=== PATIENT | female | born 1955 | race African-American/Black ===

== ENCOUNTER 2019-07-25 11:47 | Emergency (ER) | payer MEDICAID ==
[~2019-07-25] VITALS: Ht 162.6 cm; Wt 68.0 kg
[~2019-07-25 11:47] MED LIST: ACET-2178 PO; AMLO5TAB4 PO; ASPI-1393 PO; BENA20TA10 PO; CALCIUM CARBONATE PO; DIPH-909 PO; DOCU-150 PO; GABA-529 PO; GABA-531 PO; HYDR25TA PO; IBUP-2029 PO; INDO-13 PO; MELO-106 PO; NAPR-681 PO; RANI150T7 PO
[2019-07-25] MEDS ORDERED: KETOROLAC 60MG/2ML VIAL IM ONE (12:45)
[2019-07-25] MEDS ORDERED: KETOROLAC 15MG/ML VIAL IV ONE (13:00)
[2019-07-25] MEDS ORDERED: DEXAMETHASONE 10 MG/ML VIAL IV ONE (13:00)
[2019-07-25] MEDS ORDERED: AMPICILLIN SOD/SULBACTAM NA 1.5 G in SODIUM CHLORIDE 0.9% 50 ML IV SCH (13:00)
[2019-07-25 13:24] VITALS: BP 148/92
[2019-07-25 13:28] LABS: HEMATOCRIT. 37.4 % (36.0-48.0); HEMOGLOBIN. 12.9 g/dL (12.0-16.0); MEAN CORPUSCULAR HEMOGLOBIN 32.4 pg (28.0-32.0); MEAN PLATELET VOLUME 8.1 fl (7.4-10.4); PLATELET 220 x1000/uL (130-400); RED BLOOD CELL COUNT 3.98 mill/uL (4.2-5.4); RED CELL DISTRIBUTION WIDTH 12.7 % (11.6-14.6)
[2019-07-25 13:34] LABS: CHLORIDE 109 mEq/L (98-107)
[2019-07-25 13:57] LABS: PLATELET ESTIMATE NORMAL
[2019-07-25] MEDS ORDERED: IOHEXOL-300 100 ML BOTTLE ONE (14:55)
== END 2019-07-25 16:10 | disposition home or self-care (01) ==
LOC: ER 11:47
DX: J36 Peritonsillar abscess (principal); I10 Essential (primary) hypertension; E78.00 Pure hypercholesterolemia, unspecified; M19.90 Unspecified osteoarthritis, unspecified site; Z79.82 Long term (current) use of aspirin; Z79.899 Other long term (current) drug therapy
CPT/HCPCS: 36415; 70491; 80048; 85025; 96365; 96372; 96375; 99284; J0295; J1100; J1885; Q9967

== ENCOUNTER 2019-07-27 13:03 | Emergency (ER) | payer MEDICAID ==
[~2019-07-27] VITALS: Ht 165.1 cm; Wt 90.0 kg
[2019-07-27 15:17] VITALS: BP 142/78
== END 2019-07-27 15:46 | disposition home or self-care (01) ==
LOC: ER 15:33
DX: J36 Peritonsillar abscess (principal); E78.00 Pure hypercholesterolemia, unspecified; I10 Essential (primary) hypertension; F14.10 Cocaine abuse, uncomplicated; Z79.82 Long term (current) use of aspirin; Z79.899 Other long term (current) drug therapy
CPT/HCPCS: 99281